=== PATIENT | male | born 1980 | race Caucasian/White ===

== ENCOUNTER 2017-04-10 16:04 | Inpatient (IN) | payer OTHER ==
[~2017-04-10] VITALS: Ht 175.3 cm; Wt 63.2 kg
[2017-04-10 17:14] LABS: BASOPHIL 0.2 % (0-2); EOSINOPHIL 0 % (0-5); HCT 47.1 % (42.0-52.0); HGB 15.9 g/dl (13.2-18.0); LYMPHOCYTE 12.8 % (15-48); MCH 30.8 pg (25.0-31.0); MCHC 33.8 g/dL (32.0-36.0); MCV 91.3 fL (78.0-100.0); MPV 10.7 fL (6.0-9.5); PLT 368 K/uL (150-400); RBC 5.16 M/uL (4.70-6.00); RDW 14.2 % (11.5-14.0)
[2017-04-10 17:16] LABS: WBC 28.7 K/uL (4.0-10.5)
[2017-04-10 17:41] LABS: ALBUMIN 4.2 g/dL (3.5-5.0); BILIRUBIN - TOTAL 0.2 mg/dL (0.1-1.0); CREATININE 1.7 mg/dL (0.7-1.2); GLOBULIN (CALCULATION) 3.4 g/dL (2.2-4.2); TOTAL PROTEIN 7.6 g/dL (6.4-8.3)
[2017-04-10 18:08] LABS: LACTIC ACID 7.8 mmol/L (0.5-2.2)
[2017-04-10 18:11] LABS: BILIRUBIN NEGATIVE (NEGATIVE); BLOOD TRACE-INTACT Ery/uL (NEGATIVE); CLARITY CLEAR (CLEAR); COLOR YELLOW (YELLOW); GLUCOSE (U) 3+ mg/dL (NORMAL); KETONE (U) 2+ (MODERATE) mg/dL (NEGATIVE); LEUKOCYTES NEGATIVE Leu/uL (NEGATIVE); NITRITE NEGATIVE (NEGATIVE); PROTEIN TRACE (LOW) mg/dL (NEGATIVE); SPECIFIC GRAVITY 1.025 (1.001-1.030); UROBILINOGEN 0.2 mg/dL (0.2-1.0)
[2017-04-10 18:16] LABS: SQUAMOUS EPITHELIAL CELLS RARE
[2017-04-10 18:37] LABS: BILIRUBIN - TOTAL 0.2 mg/dL (0.1-1.0); CREATININE 1.6 mg/dL (0.7-1.2); GLOBULIN (CALCULATION) 4.1 g/dL (2.2-4.2); POTASSIUM 6.3 mmol/L (3.5-5.1); TOTAL PROTEIN 8.1 g/dL (6.4-8.3)
[2017-04-10 20:37] LABS: INR 1.33 (0.9-1.2)
[2017-04-10 20:46] LABS: CREATININE 1.1 mg/dL (0.7-1.2); POTASSIUM 4.7 mmol/L (3.5-5.1)
[2017-04-10 22:25] LABS: AMPHETAMINES NEGATIVE (NEGATIVE); BARBITURATES NEGATIVE (NEGATIVE); BENZODIAZEPINES NEGATIVE (NEGATIVE); COCAINE NEGATIVE (NEGATIVE); MARIJUANA (THC) NEGATIVE (NEGATIVE); METHADONE NEGATIVE (NEGATIVE); TRICYCLIC ANTIDEPRESSANT NEGATIVE (NEGATIVE)
[2017-04-11 00:37] LABS: CREATININE 0.9 mg/dL (0.7-1.2); POTASSIUM 4.7 mmol/L (3.5-5.1)
[2017-04-11 04:52] LABS: HCT 37.8 % (42.0-52.0); HGB 13.3 g/dl (13.2-18.0); MCH 30.9 pg (25.0-31.0); MCHC 35.2 g/dL (32.0-36.0); MCV 87.7 fL (78.0-100.0); MPV 9.8 fL (6.0-9.5); RBC 4.31 M/uL (4.70-6.00); RDW 13.9 % (11.5-14.0); WBC 16.5 K/uL (4.0-10.5)
[2017-04-11 05:12] LABS: ALBUMIN 3.2 g/dL (3.5-5.0); BILIRUBIN - TOTAL 0.2 mg/dL (0.1-1.0); CREATININE 0.7 mg/dL (0.7-1.2); GLOBULIN (CALCULATION) 2.5 g/dL (2.2-4.2); POTASSIUM 4.3 mmol/L (3.5-5.1); TOTAL PROTEIN 5.7 g/dL (6.4-8.3)
[2017-04-11 09:29] LABS: CREATININE 0.6 mg/dL (0.7-1.2); POTASSIUM 3.6 mmol/L (3.5-5.1)
[2017-04-12 07:09] LABS: HCT 38.3 % (42.0-52.0); HGB 13.3 g/dl (13.2-18.0); MCHC 34.7 g/dL (32.0-36.0); MCV 89.3 fL (78.0-100.0); MPV 10.3 fL (6.0-9.5); RBC 4.29 M/uL (4.70-6.00); RDW 14.4 % (11.5-14.0); WBC 8.9 K/uL (4.0-10.5)
[2017-04-12 07:35] LABS: ALBUMIN 3.3 g/dL (3.5-5.0); BILIRUBIN - TOTAL 0.3 mg/dL (0.1-1.0); CREATININE 0.6 mg/dL (0.7-1.2); GLOBULIN (CALCULATION) 2.9 g/dL (2.2-4.2); POTASSIUM 3.5 mmol/L (3.5-5.1); TOTAL PROTEIN 6.2 g/dL (6.4-8.3)
== END 2017-04-12 15:10 | disposition home or self-care (01) | DRG 637 ==
LOC: FER 16:04 → FICU 18:40 → FMS 04-11 15:00
PROVIDERS: Internal Medicine; ADMIT Internal Medicine
DX: E10.10 Type 1 diabetes mellitus with ketoacidosis without coma (principal); G93.41 Metabolic encephalopathy; N17.9 Acute kidney failure, unspecified; E87.5 Hyperkalemia; F17.210 Nicotine dependence, cigarettes, uncomplicated; Z91.14 Patient's other noncompliance with medication regimen
CPT/HCPCS: 36415; 36600; 71010; 80048; 80053; 80305; 81001; 82009; 82550; 82803; 82962; 83036; 83605; 83690; 84484; 85025; 85610; 87040; 93005; C9113; J0610; J1644; J1815; J1956